=== PATIENT | female | born 1995 | race Caucasian/White ===

== ENCOUNTER 2018-01-09 10:39 | Inpatient (IN) | payer OTHER ==
--- NOTE | ~2018-01-09 | OR ---
[facility] [address], [place] [address] Draft DATE OF OPERATION: 01/10/2018 SURGEON: Reza Walker DO PREOPERATIVE DIAGNOSES: 1. Term . 2. Persistent breech presentation. 3. hyperextension of the neck. 4. Obesity in . POSTOPERATIVE DIAGNOSES: 1. Term . 2. Persistent breech presentation. 3. hyperextension of the neck. 4. Obesity in . DEPUTY SHERIFF BUILDING GUARD: Modesto Stern MD. ANESTHESIA: Spinal. ESTIMATED BLOOD LOSS: 500 mL. COMPLICATIONS: None. FINDINGS: Viable male with Apgars of 5 and 8 at 1 and 5 minutes respectively. Normal uterus, tubes, and ovaries. Estimated blood loss 500 mL. INDICATIONS: Ms. Love is a pleasant 22-year-old, G1, P0, white female, who presents to Labor and Delivery for scheduled primary low-transverse section. is complicated by obesity, persistent breech presentation, and interestingly head noted to be hyperextended on ultrasound. Bedside ultrasound was performed that demonstrated persistent breech presentation upon admission. We previously discussed risks and benefits of attempted external cephalic version, however, given suspected possible macrosomia and hyperextended neck, I did not recommend this and patient agrees. PATIENT NAME: MARGA LOVE OPERATIVE REPORT DATE OF : [birth year] REPORT #: [id number] PHYSICIAN: REZA WALKER DO PCP: NO PRIMARY CARE PHYSICIAN REPORT IS CONFIDENTIAL AND NOT TO BE RELEASED WITHOUT AUTHORIZATION [facility] [address], [place] [address] Draft The patient was scheduled for a primary low-transverse section. Risks, benefits, and alternatives were discussed in detail with the patient. The patient understands and wishes to proceed with the procedure. DESCRIPTION OF PROCEDURE: The patient was taken to the operating room. Time-out was performed confirming correct patient and correct procedure. Spinal anesthesia was adequately established. Patient was then prepped and draped in the supine position with a bump under the right hip. Ancef 3 g were given preoperatively and no heparin was indicated. Peterson catheter was inserted and ICPs were on and running. After ensuring that the spinal was adequate, a Pfannenstiel skin incision was made 3 cm above the pubic symphysis and carried down to and through the fascia in midline. The fascia was nicked in the midline and fascial incision was extended bilaterally using curved Pete scissors. Fascia was grasped with Jake's, elevated, and underlying rectus muscle dissected bluntly and sharply. The rectus were divided bluntly in the midline. The peritoneum was grasped with hemostats, elevated and entered sharply. Peritoneal incision was extended cephalad caudad using sharp and blunt dissection. The surgeon's hand was placed in the abdomen and the uterus was palpated and found to be free of adhesions. The Bogdan self retractor was placed. The lower uterine segment was identified and hysterotomy was performed using surgical scalpel. The amnion was ruptured, noted to be clear. The hysterotomy was extended bilaterally using blunt dissection and the surgeon's hand was placed into the maternal uterus. The maxilla was identified and the head was gently flexed. Once the head was gently flexed, the ileum was grasped and the buttocks was delivered. The legs delivered easily and the baby was brought down to the axilla. The anterior shoulder was swept medially and the anterior arm was delivered. The baby was rotated 180 degrees and now anterior arm was swept medially and the shoulder delivered. The was then rotated occiput anterior. The head was gently flexed and the baby was delivered with the assistance of fundal pressure. Upon delivery, the was vigorous and cried and the cord was doubly clamped and cut. The was handed to waiting pediatric team for further care. Cord blood was obtained for routine analysis and a segment of cord was retained. The placenta was then spontaneously expressed intact with a centrally inserted three-vessel cord. The uterus was cleared of any remaining products of conception and clot and Pitocin was given to enhance uterine involution. The hysterotomy was then closed using 0 Vicryl in a running locked stitch. A second suture of 0 Vicryl was then used to imbricate the hysterotomy with good imbrication noted. Some oozing was noted along the hysterotomy and this was made hemostatic with three [id number]-pvmzz sutures of 0 Vicryl. The pelvis was then irrigated and some raw serosal edges were noted. These were made hemostatic with Bovie electrocautery and . The uterus, tubes, and ovaries were examined, found to be normal. The Bogdan uterine retractor was removed. ACell sheet was applied to the lower uterine segment. The peritoneum was then reapproximated using 2-0 Vicryl in a running nonlocked manner. The rectus were examined, found to be hemostatic and these were gently brought PATIENT NAME: MARGA LOVE OPERATIVE REPORT DATE OF : [birth year] REPORT #: [id number] PHYSICIAN: REZA WALKER DO PCP: NO PRIMARY CARE PHYSICIAN REPORT IS CONFIDENTIAL AND NOT TO BE RELEASED WITHOUT AUTHORIZATION [address] [address] Draft together in the midline using 0 Vicryl in a loose vavmdf-pt-onahe suture. Fascia was then reapproximated using 0 Vicryl in a running nonlocked manner. Subcutaneous space was then reapproximated using 2-0 Vicryl in a running nonlocked manner after ensuring hemostasis. ACell powder was applied to the rectus sheath prior to fascial closure. Skin was then reapproximated using surgical mynor with good hemostasis and cosmesis. The uterus was then Crede'd for scant amount of blood and the fundus was noted to be firm. Sponge, needle, and instrument count was correct x2 at the end the procedure. Dr. Stern was present and participated in all portions of the procedure. The patient was taken to the recovery room in good and stable condition. The was taken to the Nursery for further evaluation by pediatrics. Reza Walker DO JLEVY/MIKO /[id number] Copies: ~ PATIENT NAME: MARGA LOVE OPERATIVE REPORT DATE OF : [birth year] REPORT #: [id number] PHYSICIAN: REZA WALKER DO PCP: NO PRIMARY CARE PHYSICIAN REPORT IS CONFIDENTIAL AND NOT TO BE RELEASED WITHOUT AUTHORIZATION
[~2018-01-09 10:39] MED LIST: MICROGESTIN FE1 EACH PO
--- NOTE | 2018-01-10 13:49 | NUR ---
01/10/18 1349 Carmela Ponce 1325 PT ARRIVED IN PACU WIDE AWAKE WITH NO C/O'S. FUNDUS FIRM AT UMBILICUS WITH SCANT AMOUNT OF DRAINAGE. 1340 SPOUSE AT BEDSIDE. PT C/O ITCHING ON FACE. 1345 NUBAIN 10MG GIVEN SUB Q IN R ARM.
== END 2018-01-12 08:20 | disposition home or self-care (01) | DRG 765 ==
LOC: FBC 01-10 09:47
PROVIDERS: ADMIT Obstetrics & Gynecology
PROC: 10D00Z1 Extraction of Products of Conception, Low, Open Approach (ICD-10-PCS; principal; 2018-01-10 12:00)
DX: O32.1XX0 Maternal care for breech presentation, not applicable or unspecified (principal); Z68.41 Body mass index [BMI] 40.0-44.9, adult; O99.214 Obesity complicating childbirth; E66.01 Morbid (severe) obesity due to excess calories; O36.63X0 Maternal care for excessive fetal growth, third trimester, not applicable or unspecified; O35.8XX0 Maternal care for other (suspected) fetal abnormality and damage, not applicable or unspecified; Z3A.39 39 weeks gestation of pregnancy; Z37.0 Single live birth
CPT/HCPCS: 01961; 85027; C1763; J0690; J1200; J1885; J2274; J2300; J2370; J2405; J2590; J7120

== ENCOUNTER 2020-11-09 20:38 | Observation (INO) | payer BC ==
[~2020-11-09] VITALS: Ht 157.5 cm; Wt 108.0 kg
[2020-11-10] MEDS ORDERED: PRENATAL VITAM1 EAC6 PO (03:11)
[2020-11-10] MEDS ORDERED: TYLENOL EXTRA500 MG PO (03:12)
--- NOTE | 2020-11-10 10:50 | NUR ---
Patient arrived to medical floor from family birthing unit. Pt a&ox3, vital signs taken and are stable. Patient denies pain at this time. Patient reports blood in her urine this admit has subsided. No needs at this time. Patient oriented to room and call light. Urine hat placed in toilet. Lunch ordered for patient.
--- NOTE | 2020-11-10 12:59 | NUR ---
Patient in bed watching tv, alert and oriented x3. Patient denies pain. Fresh water provided. at bedside.
--- NOTE | 2020-11-10 14:10 | NUR ---
PT ALERT, ORIENTED AND VISITING WITH HER SMITHA AT BS. PT SAID SHE IS FEELING MUCH BETTER THAN AT ADMISSION. PT FEELS INFORMED, SEEMS VERY SUPPORTIVE. GAVE ENCOURAGEMENT AND SUPPORT. LEFT G.POST AND WILL FOLLOW
--- NOTE | 2020-11-10 15:50 | NUR ---
MED REC COMPLETE
--- NOTE | 2020-11-10 18:24 | NUR ---
Patient doing well at this time, a&ox3. Patient has no reported pain or needs. Fresh water provided. Encouraged patient to call if she has needs. at bedside.
--- NOTE | 2020-11-10 18:26 | NUR ---
PATIENT RESTING IN BED WITH IN THE ROOM. VITALS AND I&O'S CHARTED. CALL LIGHT IN REACH AND NO FURTHER NEEDS AT THIS TIME.
--- NOTE | 2020-11-10 18:32 | NUR ---
Tylenol 650mg po admin for reports of head pain.
--- NOTE | 2020-11-10 19:24 | NUR ---
REPORT RECEIVED FROM DAY SHIFT RN. PT LYING IN BED ALERT AND ORIENTED. AT BEDSIDE. DENIES NEEDS. WHITE BOARD UPDATED. CALL LIGHT IN REACH.
--- NOTE | 2020-11-10 22:30 | NUR ---
EVENING ASSESSMENT COMPLETE. IV ABX INFUSING WNL. PT DENIES PAIN OR NAUSEA. DENIES FLANK PAIN. NO BLOOD NOTED IN URINE. STRESS TEST COMPLETED BY CENTER RN. FRESH WATER AND ICE PACK PROVIDED. PT DENIES QUESTIONS AND CONCERNS. IN ROOM. CALL LIGHT IN REACH.
--- NOTE | 2020-11-11 00:03 | NUR ---
PT SITTING UP IN BED WATCHING TV. IVF INFUSING. DENIES NEEDS.
--- NOTE | 2020-11-11 02:20 | NUR ---
PT RESTING IN BED WITH EYES CLOSED. NO APPARENT DISTRESS. IVF INFUSING WNL. CALL LIGHT IN REACH.
--- NOTE | 2020-11-11 04:50 | NUR ---
PT RESTING IN BED WITH EYES CLOSED. RESPIRATIONS EVEN. NO APPARENT DISTRESS.
--- NOTE | 2020-11-11 06:27 | NUR ---
Patients vitals, Is, and Os charted. Fresh Ice water provided. Trash emptied and room tidied. Call light left in reach, no other immediate concerns.
--- NOTE | 2020-11-11 06:34 | NUR ---
ASSESSMENT COMPLETE. VS AND I&O COMPLETE. PT DENIES FLANK PAIN. NO BLOOD NOTED IN URINE. PT REPORTS NORMAL MOVEMENT. NEW BAG IVF INFUSING. FRESH WATER PROVIDED. PT WITHOUT FURTHER NEEDS. IN ROOM. CALL LIGHT IN REACH.
--- NOTE | 2020-11-11 07:30 | NUR ---
Pt resting in bed safely w/ call light in reach. Pt given extra pillow per request, denies any other needs at this time.
--- NOTE | 2020-11-11 07:59 | NUR ---
Dr. Walker in room to assess pt, FBC nurse in room to perform NST per provider order.
--- NOTE | 2020-11-11 08:46 | NUR ---
Pt sitting up in bed safely w/ call light in reach. Pt's spouse in room. Cup of ice given per pt request, denies any other needs at this time. Morning assessment completed and IV abx infusing per provider order.
[2020-11-11] MEDS ORDERED: AUGMENTIN 875-1 EACH PO (08:58)
[2020-11-11] MEDS ORDERED: CEPHALEXIN250 MG PO (09:04)
--- NOTE | 2020-11-11 09:27 | NUR ---
PATIENT NAUSEATED AND EMESIS AFTER BREAKFAST. PATIENT DENIES NEEDING ZOFRAN, THIS HAS BEEN GOING ON THROUGHOUT HER . RIGHT HAND IV D/C'D WITH CATHETER INTACT.
--- NOTE | 2020-11-11 09:46 | NUR ---
Pt given discharge instruction and education on admitting diagnosis. All questions answered, pt verbalized understanding. VSS on RA. Pt offered w/c but declined, stating she'd like to walk.
== END 2020-11-11 09:40 | disposition home or self-care (01) ==
LOC: FBCO 20:38 → FBC 23:04 → MS 23:04
PROVIDERS: ADMIT Obstetrics & Gynecology; ATTEND Obstetrics & Gynecology
DX: O23.03 Infections of kidney in pregnancy, third trimester (principal); Z3A.35 35 weeks gestation of pregnancy; Z20.822 Contact with and (suspected) exposure to COVID-19
CPT/HCPCS: 59025; 80053; 81001; 85025; 96365; 96376; C9803; G0378; J0696; J7121; U0003

== ENCOUNTER 2020-11-25 08:46 | Inpatient (IN) | payer BC ==
[~2020-11-25] VITALS: Ht 157.5 cm; Wt 108.0 kg
[~2020-11-25 08:46] MED LIST changes: +AUGMENTIN 875-1 EACH PO; +CEPHALEXIN250 MG PO; +PRENATAL VITAM1 EAC6 PO; +TYLENOL EXTRA500 MG PO
--- NOTE | 2020-12-08 08:33 | NUR ---
12/08/20 0833 Petra Salinas 0822-PATIENT ARRIVED TO PACU RETURNED TO ROOM 104 AWAKE DENIES PAIN REPORTS A LITTLE NAUSEA. PATIENT LAYING SUPINE LR WITH 2O PITOCIN INFUSING TO LEFT HAND CDI. BLAKELY CATHETER DRAINING YELLOW URINE. SPINAL LEVEL AT T9. FUNDUS FIRM LIGHT RUBRA DRAINAGE ON JN PAD. FUNDUS 1 BELOW UMBILICUS. DAD HOLDING BABY. SHOSHANA RN TO ASSIST MOM TO BREAST FEED. 99% RA RR EVEN SR. 0830-BABY FEEDING TO BREAST. PATIETN AWAKE. RA 98% RR EVEN. PATIENT REPORTS "ITCHY FACE" REPORTS TOLERABLE.
--- NOTE | 2020-12-09 07:53 | PR ---
[facility] [address] [facility] [place], [place] [address] Signed PP Progress Notes Datetime Report Generated by CPN: 12/09/2020 07:53 SUBJECTIVE: [id number] Pain: Within Normal Limits Nausea/Vomiting: Denies Bowel Movement: No Vital Signs: [id number] Vital Signs: Reviewed; Within Normal Limits Cardiovascular: Normal Respiratory: Normal Abdomen/Uterus: Normal Lochia: Normal CVA Tenderness: Normal Extremities: Normal Incision: Normal Progress: Normal Exam Comments: Fundus firm U-2 nontender. Incision well healing IMPRESSION/PLAN/PROCEDURES: [id number] Impression: Normal Progression Plan: Continue Present Management Progress Notes: Pt seen and examined. Doing well. Ambulating and tolerating full diet. Peterson just out but good urine output overnight. No fevers/chills/lightheadedness. Hgb 8.7. Anticipate d/c home tomorrow Signing Physician: Reza Walker DO Copies: ~ *Electronically Signed* 12/09/20 0753 REZA WALKER DO PATIENT NAME: MARGA MOJICA PROGRESS NOTE DATE OF : [birth year] PHYSICIAN: REZA WALKER DO RPT #: [id number] REPORT IS CONFIDENTIAL AND NOT TO BE RELEASED WITHOUT AUTHORIZATION
--- NOTE | 2020-12-09 07:54 | PR ---
[facility] [address] [facility] [place], [place] [address] Signed PP Progress Notes Datetime Report Generated by CPN: 12/09/2020 07:54 SUBJECTIVE: [id number] Pain: Within Normal Limits Nausea/Vomiting: Denies Bowel Movement: No Vital Signs: [id number] Vital Signs: Reviewed; Within Normal Limits Cardiovascular: Normal Respiratory: Normal Abdomen/Uterus: Normal Lochia: Normal CVA Tenderness: Normal Extremities: Normal Incision: Normal Progress: Normal Exam Comments: Fundus firm U-2 nontender. Incision well healing IMPRESSION/PLAN/PROCEDURES: [id number] Impression: Normal Progression Plan: Continue Present Management Progress Notes: Pt seen and examined. Doing well. Ambulating and tolerating full diet. Peterson just out but good urine output overnight. No fevers/chills/lightheadedness. Hgb 8.7. Anticipate d/c home tomorrow Signing Physician: Reza Walker DO Copies: ~ *Electronically Signed* 12/09/20 0754 REZA WALKER DO PATIENT NAME: MARGA MOJICA PROGRESS NOTE DATE OF : [birth year] PHYSICIAN: REZA WALKER DO RPT #: [id number] REPORT IS CONFIDENTIAL AND NOT TO BE RELEASED WITHOUT AUTHORIZATION
--- NOTE | 2020-12-10 08:56 | PR ---
[facility] [address] [facility] [place], [place] [address] Signed PP Progress Notes Datetime Report Generated by CPN: 12/10/2020 08:56 SUBJECTIVE: [id number] Pain: Within Normal Limits Nausea/Vomiting: Denies Flatus: Yes Bowel Movement: No Vital Signs: [id number] Vital Signs: Reviewed; Within Normal Limits Cardiovascular: Normal Respiratory: Normal Abdomen/Uterus: Normal Lochia: Normal CVA Tenderness: Normal Extremities: Normal Incision: Normal Progress: Normal Exam Comments: Fundus firm U-2 nontender incision healing well IMPRESSION/PLAN/PROCEDURES: [id number] Impression: Normal Progression Plan: Discharge Progress Notes: Pt seen and examined. Doing well. Ambulating, voiding, and tolerating full diet. Pain and lochia minimal. well. Some documented hypotension, but no lightheadedness/dizziness/bleeding. Excellent urinary output. Reviewed acute blood loss anemia (asymptomatic) and will send home w/ iron therapy. Planning vasectomy for pp contraception. All questions answered. [place] out in office tomorrow Signing Physician: Reza Walker DO Copies: ~ *Electronically Signed* 12/10/20 0856 REZA WALKER DO PATIENT NAME: MARGA MOJICA PROGRESS NOTE DATE OF : [birth year] PHYSICIAN: REZA WALKER DO RPT #: [id number] REPORT IS CONFIDENTIAL AND NOT TO BE RELEASED WITHOUT AUTHORIZATION
--- NOTE | 2021-01-12 07:43 | OR ---
[facility] [address] [place], [place] [address] Signed DATE OF OPERATION: 12/08/2020 SURGEON: Reza Walker DO PREOPERATIVE DIAGNOSES: 1. Term at 39 weeks gestation. 2. History of prior . 3. Transverse position. 4. Father of baby with Sotos syndrome. POSTOPERATIVE DIAGNOSES: 1. Term at 39 weeks gestation. 2. History of prior . 3. Transverse position. 4. Father of baby with Sotos syndrome. PROCEDURE: Repeat low transverse delivery. ANESTHESIA: Spinal. MAIL HANDLER: Jeanne aMckay MD COMPLICATIONS: None. ESTIMATED BLOOD LOSS: 500 mL. FINDINGS: Viable female , 7 pounds 2 ounces with Apgars of 8 and 9. Born in the transverse back down position with no nuchal cord and clear amniotic fluid. Normal uterus, fallopian tubes, and ovaries. Minor omental adhesions to the anterior abdominal wall. INDICATIONS: Ms. Love is a very pleasant 25-year-old, G2, P1 white female, who presents to Labor and Delivery for scheduled repeat low transverse delivery. is complicated by history of prior and and 1st child affected by Sotos Electronically Signed By: REZA WALKER DO 01/12/21 0743 PATIENT NAME: MARGA LOVE OPERATIVE REPORT DATE OF : [birth year] REPORT #: [id number] PHYSICIAN: REZA WALKER DO PCP: NO PRIMARY CARE PHYSICIAN REPORT IS CONFIDENTIAL AND NOT TO BE RELEASED WITHOUT AUTHORIZATION [facility] [address] [place], [place] [address] Signed syndrome. The patient was scheduled for repeat low transverse delivery. Risks, benefits, and alternatives were discussed in detail with the patient. The patient understands and wished to proceed with the procedure. TECHNIQUE: The patient was taken to the operating room. A time-out was performed to confirm correct patient, correct procedure. Spinal anesthesia was adequately established. The patient was prepped and draped in the supine position with a bump under the right hip. A Peterson catheter was inserted. The patient was then tested to assure efficacy of spinal and once this was performed, her prior Pfannenstiel scar was ellipsed out using a surgical scalpel. Incision was carried down to the fascia and the fascia was nicked in the midline with a surgical scalpel. Fascial incision was extended bilaterally using curved Pete scissors. Fascia was grasped with Jake's, elevated, and the underlying rectus muscle dissected off bluntly and sharply. Rectus was divided in the middle and peritoneum was grasped with hemostats, elevated, and entered sharply. Peritoneal incision was extended with sharp and blunt dissection. Scant omental adhesions to the anterior abdominal wall were noted in the superior aspect of the incision. Bogdan self retractor was placed. Lower uterine segment identified. Baby was noted to be in the transverse back down position. Hysterotomy was then performed using a surgical scalpel and hysterotomy was extended using blunt dissection. Clear amniotic fluid was noted. The surgeon's hand was placed into the uterine cavity and gentle internal cephalic version was performed. The baby's left arm delivered initially through the hysterotomy, but the head and the remainder of the was easily delivered with the assistance of fundal pressure. Cord was doubly clamped and cut and cord blood was obtained for routine analysis. The baby was handed to the waiting pediatric team for further care. The placenta was manually expressed, intact with a centrally inserted 3-vessel cord. The uterus was cleared of any remaining products of conception or clot and hysterotomy was repaired in 2 layers using 0 Monocryl suture, the 1st being a running locked suture and the 2nd a vertical imbricating suture. Excellent hemostasis was appreciated. The pelvis was irrigated, found to be hemostatic. The Bogdan self retractor was removed and ACell sheet was placed. Peritoneum was then reapproximated using 2-0 Vicryl in a running nonlocked manner. Rectus muscles were plicated in the midline using 2 interrupted 0 Vicryl sutures loosely. Rectus was examined and found to be hemostatic and ACell powder was applied. Fascia was reapproximated using 0 Vicryl in a running nonlocked manner. Subcu was irrigated and made hemostatic with judicious use of Bovie electrocautery. Subcu was closed with 2-0 Vicryl in a running nonlocked manner and skin was reapproximated using surgical mynor. The uterus was Crede'd for a scant amount of blood and the patient was taken to PACU in good and stable condition. Sponge, needle, and instrument count was correct x2 at the end of the procedure. Dr. Mackay was present and participated in all portions of procedure. Electronically Signed By: REZA WALKER DO 01/12/21 0743 PATIENT NAME: MARGA LOVE OPERATIVE REPORT DATE OF : [birth year] REPORT #: [id number] PHYSICIAN: REZA WALKER DO PCP: NO PRIMARY CARE PHYSICIAN REPORT IS CONFIDENTIAL AND NOT TO BE RELEASED WITHOUT AUTHORIZATION [address] [address] Signed Reza Walker DO JDW/MODL /[id number] Copies: ~ Electronically Signed By: REZA WALKER DO 01/12/21 0743 PATIENT NAME: MARGA LOVE OPERATIVE REPORT DATE OF : [birth year] REPORT #: [id number] PHYSICIAN: REZA WALKER DO PCP: NO PRIMARY CARE PHYSICIAN REPORT IS CONFIDENTIAL AND NOT TO BE RELEASED WITHOUT AUTHORIZATION
== END 2020-12-10 11:10 | disposition home or self-care (01) | DRG 787 ==
LOC: FBC 12-08 05:00
PROVIDERS: ADMIT Obstetrics & Gynecology; ATTEND Obstetrics & Gynecology
PROC: 10D00Z1 Extraction of Products of Conception, Low, Open Approach (ICD-10-PCS; principal; 2020-12-08 06:45)
DX: O34.211 Maternal care for low transverse scar from previous cesarean delivery (principal); D62 Acute posthemorrhagic anemia; O90.81 Anemia of the puerperium; O99.214 Obesity complicating childbirth; E66.9 Obesity, unspecified; Z37.0 Single live birth; Z3A.39 39 weeks gestation of pregnancy
CPT/HCPCS: 01961; 85027; A9270; J0690; J1650; J1885; J2001; J2274; J2405; J2590; J2765; J7040; J7121

== ENCOUNTER 2021-08-02 05:15 | Emergency (ER) | payer BC ==
[~2021-08-02] VITALS: Ht 152.4 cm; Wt 105.5 kg
[2021-08-02] MEDS ORDERED: HYDROCODON-ACE1 EA10 PO (05:46)
[2021-08-02] MEDS ORDERED: DICLOXACILLIN500 MG PO (05:46)
== END 2021-08-02 06:00 | disposition home or self-care (01) ==
LOC: ED 05:15
DX: N61.0 Mastitis without abscess (principal)
CPT/HCPCS: 99283

== ENCOUNTER 2021-09-12 16:44 | Emergency (ER) | payer BC ==
[~2021-09-12] VITALS: Ht 154.9 cm; Wt 105.5 kg
[~2021-09-12 16:44] MED LIST changes: +DICLOXACILLIN500 MG PO; +HYDROCODON-ACE1 EA10 PO
[2021-09-12] MEDS ORDERED: HYDROCODON-ACE1 EA10 PO (19:44)
[2021-09-12] MEDS ORDERED: CEPHALEXIN500 M1 PO (19:44)
== END 2021-09-12 20:23 | disposition home or self-care (01) ==
LOC: ED 16:44
DX: N61.0 Mastitis without abscess (principal)
CPT/HCPCS: 36415; 76642; 80048; 85025; 96374; 96375; 99284-25; A9270; J0690; J1170; J1885; J2405; J7030

== ENCOUNTER 2023-11-04 19:18 | Observation (INO) | payer BC ==
[~2023-11-04] VITALS: Ht 157.5 cm; Wt 113.9 kg
[~2023-11-04 19:18] MED LIST changes: +CEPHALEXIN500 M1 PO
[2023-11-04] MEDS ORDERED: LACTATED RINGER'S 1,000 ML IV ONE (20:00)
[2023-11-04] MEDS ORDERED: ONDANSETRON 4 MG TAB ODT SL ONE (20:00)
[2023-11-04 20:13] LABS: BILIRUBIN, URINE NEGATIVE (negative); BLOOD/HGB, URINE LARGE (Negative); KETONE, URINE TRACE (Negative); LEUK ESTERASE, URINE NEGATIVE (negative); NITRITE, URINE NEGATIVE (negative); PH, URINE 6.5 (5-7)
[2023-11-04 20:28] LABS: BACTERIA, URINE 1+ /hpf (negative); CASTS, URINE NONE SEEN \\lpf; COLLECTION TYPE, URINE CLEAN CATCH; CRYSTALS, URINE NONE SEEN (0-1+); EPITHELIAL CELLS, URINE SQUAMOUS 1+ /lpf (0-1+); RED BLOOD CELLS, URINE 21-40 /hpf (0-5); REFLEX CULTURE, URINE No (No)
[2023-11-04] MEDS ORDERED: ondansetron HCL 4 MG TAB PO PRN (21:30)
[2023-11-04] MEDS ORDERED: LACTATED RINGER'S 1,000 ML IV SCH (21:30)
[2023-11-04] MEDS ORDERED: ACETAMINOPHEN 500 MG TAB PO PRN (21:30)
[2023-11-04] MEDS ORDERED: METOCLOPRAMIDE HCL 10 MG/2 ML SDV IV PRN (21:30)
[2023-11-04] MEDS ORDERED: MORPHINE SULFATE 4 MG/ML VIAL IV PRN (21:30)
[2023-11-04] MEDS ORDERED: OXYCODONE HCL 5 MG TAB PO PRN (21:30)
[2023-11-04 21:40] LABS: RDW 13.7 (10.5-15.0)
[2023-11-04 21:44] LABS: BASOPHILS 0.1 % (0-2); EOSINOPHILS 0.5 % (0-6); HEMATOCRIT 34.9 % (35.0-50.0); HEMOGLOBIN 11.8 g/dL (12.0-18.0); LYMPHOCYTES 17.2 % (24-44); MCH 27.6 (27-36); MCHC 33.9 g/dl (30-36); MCV 81.6 fl (81-99); NEUTROPHILS 74.2 % (39-80); PLATELET COUNT 418 K/uL (140-440); RBC 4.27 M/ul (4.3-5.7)
[2023-11-04] MEDS ORDERED: diphenhydrAMINE HCL 25 MG CAP PO PRN (21:45)
[2023-11-04 21:57] VITALS: BP 118/72
[2023-11-04] MEDS ORDERED: CEFTRIAXONE/SODIUM CHLORIDE 1 GM/100 ML PIGGYBACK IV SCH (22:00)
[2023-11-04 22:57] LABS: ABO O; ANTIBODY SCREEN NEGATIVE; RH POSITIVE
--- NOTE | 2023-11-06 08:28 | PR ---
[facility] [address] [facility] [place], [place] [address] Signed AP Progress Notes Datetime Report Generated by CPN: 11/06/2023 08:28 Chief Complaint: left flank pain denies hx of kidney stones no dysuria PHYSICAL EXAM: [id number] General: Normal HEENT: Not Done Neurologic: Not Done Thyroid: Not Done Cardiovascular: Not Done Respiratory: Not Done Breast: Not Done Back: Abnormal Abdomen: Abnormal Genitourinary Exam: Not Done Extremities: Normal DTRs: Not Done Physical Exam Comments: Left CVA tenderness--none on the right Impression: IUP at 26.6 wks Undergoing treatment for left pyelo but suspect left nephrolithiasis Unfortunately no culture was done on original urine and more RBCs than WBCs. Plan: Retroperitoneal U/S Repeat U/A with culture now VITAL SIGNS: [id number] EXAM: [id number] MEMBRANES: [id number] Membranes: Intact FETUS A: [id number] FETUS B: [id number] PROGRESS NOTES: [id number] Signing Physician: Jeanne Mackay MD Copies: ~ *Electronically Signed* 11/06/23827 JEANNE MACKAY MD PATIENT NAME: MARGA MOJICA PROGRESS NOTE DATE OF : [birth year] PHYSICIAN: JEANNE MACKAY MD RPT #: [id number] REPORT IS CONFIDENTIAL AND NOT TO BE RELEASED WITHOUT AUTHORIZATION
[2023-11-06 09:07] LABS: BASOPHILS 0.3 % (0-2); EOSINOPHILS 1.1 % (0-6); HEMATOCRIT 31.5 % (35.0-50.0); HEMOGLOBIN 10.9 g/dL (12.0-18.0); LYMPHOCYTES 17.8 % (24-44); MCH 28.2 (27-36); MCHC 34.7 g/dl (30-36); MCV 81.3 fl (81-99); NEUTROPHILS 72.8 % (39-80); PLATELET COUNT 359 K/uL (140-440); RBC 3.88 M/ul (4.3-5.7); RDW 13.7 (10.5-15.0)
[2023-11-06 09:07] LABS: BILIRUBIN, URINE NEGATIVE (negative); BLOOD/HGB, URINE TRACE-I (Negative); KETONE, URINE NEGATIVE (Negative); LEUK ESTERASE, URINE NEGATIVE (negative); NITRITE, URINE NEGATIVE (negative); PH, URINE 6.5 (5-7)
[2023-11-06 09:13] LABS: CASTS, URINE NONE SEEN \\lpf; CRYSTALS, URINE NONE SEEN (0-1+); EPITHELIAL CELLS, URINE SQUAMOUS 2+ /lpf (0-1+); WHITE BLOOD CELLS, URINE 0-1 /HPF (0-5)
[2023-11-06 09:14] LABS: BACTERIA, URINE RARE /hpf (negative); COLLECTION TYPE, URINE CLEAN CATCH; REFLEX CULTURE, URINE No (No)
--- NOTE | 2023-11-06 12:34 | PR ---
[facility] [address] [facility] [place], [place] [address] Signed AP Progress Notes Datetime Report Generated by CPN: 11/06/2023 12:34 Chief Complaint: Feeling good. PHYSICAL EXAM: [id number] General: Normal HEENT: Not Done Neurologic: Not Done Thyroid: Not Done Cardiovascular: Not Done Respiratory: Not Done Breast: Not Done Back: Abnormal Abdomen: Abnormal Genitourinary Exam: Not Done Extremities: Normal DTRs: Not Done Physical Exam Comments: Left CVA tenderness--none on the right Impression: IUP at 26.6 wks Possible pyelo but suspect kidney stones instead. Culture pending from today as original specimen NOT cultured. U/A today with much fewer RBCs, few WBCs. Plan: D/C home on Augmentin 875 mg pending final culture Push water Will need new provider to contact hospital on Mon for final urine culture results. VITAL SIGNS: [id number] EXAM: [id number] MEMBRANES: [id number] Membranes: Intact FETUS A: [id number] FETUS B: [id number] PROGRESS NOTES: [id number] Signing Physician: Jeanne Mackay MD Copies: ~ *Electronically Signed* 11/06/23 1234 JEANNE MACKAY MD PATIENT NAME: MARGA MOJICA PROGRESS NOTE DATE OF : [birth year] PHYSICIAN: JENANE MACKAY MD RPT #: [id number] REPORT IS CONFIDENTIAL AND NOT TO BE RELEASED WITHOUT AUTHORIZATION
== END 2023-11-06 12:55 | disposition home or self-care (01) ==
LOC: FBCO 19:18 → FBC 21:00 → FBCO 21:00 → FBC 11-06 12:55
PROVIDERS: Obstetrics & Gynecology; ADMIT Obstetrics & Gynecology; ATTEND Obstetrics & Gynecology
DX: O23.02 Infections of kidney in pregnancy, second trimester (principal); Z3A.26 26 weeks gestation of pregnancy
CPT/HCPCS: 36415; 76770; 81001; 85025; 86850; 86900; 86901; A9270; J0696; J7121